=== PATIENT | male | born 1985 | race African-American/Black ===

== ENCOUNTER 2016-09-13 14:23 | Emergency (ER) | payer SELFPAY ==
[~2016-09-13] VITALS: Ht 172.7 cm; Wt 115.2 kg
[2016-09-13] MEDS ORDERED: Albuterol ud Inhalation HHN ONE (15:30)
--- NOTE | 2016-09-13 15:37 | Emergency Room Report ---
History of Present Illness General Chief Complaint: Upper Respiratory Illness Source: Patient (Isis Arriaga) Present Illness HPI 31-year-old male presents emergency department complaining of cough x3 weeks with new onset fevers and nasal congestion. Patient states that initially cough presented as a dry cough however over the course of the past 2 days he has noted intermittent sputum production. Patient states that he had a fever of 102 last night which responded well to Motrin. He states he is up-to-date with vaccinations denies history of asthma reports that he is a current smoker. Denies ill contacts, recent travel, abdominal pain, sore throat, n/v, or rashes. Patient denies history of immune compromise. Denies CP, Palpitations, LOC, AMS, dizziness, Changes in Vision, Sensation, paresthesias, or a sudden severe headache. (Isis Arriaga) Allergies: Coded Allergies: No Known Allergies (Unverified , 09/13/16) Patient History Past Medical History: see triage record Past Surgical History: none Pertinent Family History: none Immunizations: UTD Reviewed Nursing Documentation: PMH: Agreed, PSxH: Agreed (Isis Arriaga) Nursing Documentation-PMH Past Medical History: No Stated History (Isis Arriaga) Review of Systems All Other Systems: negative except mentioned in HPI (Isis Arriaga) Physical Exam Vital Signs Date Time Temp Pulse Resp B/P Pulse Ox O2 Delivery O2 Flow Rate FiO2 09/13/16 14:52 99.3 83 14 133/75 94 Room Air Sp02 EP Interpretation: reviewed, normal General Appearance: no apparent distress, alert, GCS 15, non-toxic Head: normocephalic, atraumatic Eyes: bilateral eye PERRL, bilateral eye normal inspection ENT: hearing grossly normal, normal pharynx, no angioedema, normal voice, TMs + canals normal, uvula midline, nasal congestion Neck: full range of motion, no meningismus, no bony tend, supple/symm/no masses Respiratory: chest non-tender, lungs clear, normal breath sounds, speaking full sentences, wheezing - mild expiratory wheezes bilaterally. Cardiovascular #1: regular rate, rhythm, no edema Rectal: deferred Musculoskeletal: back normal, gait/station normal, normal range of motion, non- tender, no calf tenderness Neurologic: alert, oriented x3, responsive, motor strength/tone normal, sensory intact, speech normal Psychiatric: judgement/insight normal, memory normal, mood/affect normal, no suicidal/homicidal ideation Skin: normal color, no rash, warm/dry, well hydrated Lymphatic: no adenopathy (Isis Arriaga) Medical Decision Making PA Attestation Dr. Abdullahi is my supervising Physician whom patient management has been discussed with. (Isis Arriaga) Diagnostic Impression: Primary Impression: Upper respiratory infection Qualified Codes: J06.9 - Acute upper respiratory infection, unspecified Additional Impression: Bronchitis ER Course 31-year-old male presents emergency department complaining of cough x3 weeks with new onset fevers and nasal congestion. Patient states that initially cough presented as a dry cough however over the course of the past 2 days he has noted intermittent sputum production. Patient states that he had a fever of 102 last night which responded well to Motrin Ddx considered but are not limited to URI, pneumonia, PE, strep pharyngitis, meningitis. Vital signs: Pt. is afebrile, the remaining VS are WNL, non-tachypneic, non tachycardic oxygenating at 94% RA H&PE are most consistent with URI- no meningeal signs, oropharynx is not involved, no evidence of bacterial infection at this time. ORDERS: none required at this time, the diagnosis is clinical ED INTERVENTIONS: - Albuterol Nebulized treatment. - Pt. became tachycardic after albuterol treatment, however improved significantly after rest. Pt. oxygen saturation improved to 98 % RA DISCHARGE: At this time pt. is stable for d/c to home. Will provide printed patient care instructions, and any necessary prescriptions. Care plan and follow up instructions have been discussed with the patient prior to discharge. (Isis [email or web address].Becki) Last Vital Signs Date Time Temp Pulse Resp B/P Pulse Ox O2 Delivery O2 Flow Rate FiO2 09/13/16 14:52 99.3 83 14 133/75 94 Room Air ([email or web address]) Last Vital Signs Date Time Temp Pulse Resp B/P Pulse Ox O2 Delivery O2 Flow Rate FiO2 09/13/16 16:01 99.3 102 20 137/79 98 Room Air (Markos Abdullahi M.D.) Disposition: HOME, SELF-CARE Condition: Stable Scripts Albuterol Sulfate* (ALBUTEROL SULFATE MDI*) 8.5 Gm Hfa.aer.ad 2 PUFF INH Q3H, #1 INH 0 Refills Prov: Isis Arriaga 09/13/16 Pseudoephedrine Hcl* (NEXAFED*) 30 Mg Tablet 30 MG ORAL Q6H Y for congestion for 5 Days, #20 TAB Prov: Isis Arriaga 09/13/16 Codeine/Promethazine Hcl* (PROMETHAZINE-CODEINE SYRUP*) 118 Ml Syrup 5 ML ORAL Q6H Y for For Cough, #118 ML 0 Refills Prov: Isis Arriaga 09/13/16 Departure Forms: Return to Work Return to Work in (Days): 3 Return to Work Date: Sep 16, 2016 Work Restrictions: None Return to Full Activity: Sep 16, 2016 Patient Instructions: Acute Bronchitis, Upper Respiratory Infection, Adult, [id number] Additional Instructions: Take medications as directed. Follow up with PCP in 3-5 days Return sooner to ED if new symptoms occur, or current symptoms become worse. Do not drink alcohol, drive, or operate heavy machinery while taking Cough Syrup as this may cause drowsiness. - Please note that this Emergency Department Report was dictated using [employer] technology software, occasionally this can lead to erroneous entry secondary to interpretation by the dictation equipment. Isis Arriaga Sep 13, 2016 15:37 Markos Abdulalhi M.D. Sep 16, 2016 04:24
[2016-09-13] MEDS ORDERED: PROMETHAZINE-C118 M1 ORAL (15:41)
[2016-09-13] MEDS ORDERED: NEXAFED30 MG ORAL (15:41)
[2016-09-13] MEDS ORDERED: ZITHROMAX250 MG ORAL (15:41)
[2016-09-13] MEDS ORDERED: ALBUTEROL SULF8.5 GM INH (15:42)
[2016-09-13 16:01] VITALS: BP 137/79
== END 2016-09-13 16:03 | disposition home or self-care (01) ==
LOC: EMR 15:45
DX: J06.9 Acute upper respiratory infection, unspecified (principal); J40 Bronchitis, not specified as acute or chronic
CPT/HCPCS: 94640; 94664; 99284

== ENCOUNTER 2017-03-31 10:47 | Emergency (ER) | payer OTHER ==
[~2017-03-31] VITALS: Ht 172.7 cm; Wt 111.1 kg
[~2017-03-31 10:47] MED LIST: ALBUTEROL SULF8.5 GM INH; NEXAFED30 MG ORAL; PROMETHAZINE-C118 M1 ORAL; ZITHROMAX250 MG ORAL
[2017-03-31] MEDS ORDERED: NKM (10:56)
[2017-03-31 11:07] VITALS: BP 123/87
[2017-03-31] MEDS ORDERED: ALBUTEROL SULF8.5 GM INH (11:25)
[2017-03-31] MEDS ORDERED: TYLENOL COLD M1 EAC3 PO (11:25)
[2017-03-31 11:37] VITALS: BP 123/87
--- NOTE | 2017-03-31 11:43 | Emergency Room Report ---
History of Present Illness General Chief Complaint: Upper Respiratory Illness Source: Patient Present Illness HPI 31-year-old male presents ED for evaluation. States for the last 3 days he's been feeling congestion with cough. Cough is productive with yellowish sputum. Worsen night. Denies fevers or chills. Denies earache or sore throat. Denies sick contacts or recent travel. No other aggravating relieving factors. Denies any other associated symptoms Allergies: Coded Allergies: No Known Allergies (Unverified , 09/13/16) Patient History Past Medical History: none Past Surgical History: none Pertinent Family History: none Social History: Denies: smoking, alcohol use, drug use Immunizations: UTD Reviewed Nursing Documentation: PMH: Agreed, PSxH: Agreed Nursing Documentation-PMH Past Medical History: No Stated History Review of Systems All Other Systems: negative except mentioned in HPI Physical Exam Vital Signs Date Time Temp Pulse Resp B/P (MAP) Pulse Ox O2 Delivery O2 Flow Rate FiO2 03/31/17 10:51 97.9 84 16 123/87 95 Room Air Sp02 EP Interpretation: reviewed, normal General Appearance: no apparent distress, alert, GCS 15, non-toxic, obese Head: normocephalic, atraumatic Eyes: bilateral eye normal inspection, bilateral eye PERRL ENT: hearing grossly normal, normal pharynx, no angioedema, normal voice Neck: full range of motion, supple/symm/no masses Respiratory: chest non-tender, lungs clear, normal breath sounds, speaking full sentences Cardiovascular #1: regular rate, rhythm, no edema Cardiovascular #2: 2+ carotid (R), 2+ carotid (L), 2+ radial (R), 2+ radial (L) , 2+ dorsalis pedis (R), 2+ dorsalis pedis (L) Gastrointestinal: normal bowel sounds, non tender, soft, non-distended, no guarding, no rebound Rectal: deferred Genitourinary: normal inspection, no CVA tenderness Musculoskeletal: back normal, gait/station normal, normal range of motion, non- tender Neurologic: alert, oriented x3, responsive, motor strength/tone normal, sensory intact, speech normal Psychiatric: judgement/insight normal, memory normal, mood/affect normal, no suicidal/homicidal ideation Reflexes: 3+ bicep (R), 3+ bicep (L), 3+ tricep (R), 3+ tricep (L), 3+ knee (R) , 3+ knee (L) Skin: normal color, no rash, warm/dry, well hydrated Lymphatic: no adenopathy Medical Decision Making Diagnostic Impression: Primary Impression: Bronchitis ER Course Hospital Course 31 year-old male presents to ED complaining of cough, runny nose with congestion Differential diagnoses include: URI, pharyngitis, otitis media, asthma Clinical course Patient placed on stretcher. After initial history, physical exam reveals a young male in no acute distress. Bilateral TM unremarkable. No pharyngeal erythema. No tonsillar exudates. No lymphadenopathy. lungs clear. abdomen soft. Clinical findings consistent with bronchitis. Reassurance given. treatment is supportive therapy Diagnosis - bronchitis Stable and discharged home with Rx Albuterol, tylenol multi-symptom. Instructed to followup with PMD. Return to ED if symptoms recur or worsen Last Vital Signs Date Time Temp Pulse Resp B/P (MAP) Pulse Ox O2 Delivery O2 Flow Rate FiO2 03/31/17 11:07 84 16 Room Air 03/31/17 11:07 97.9 123/87 95 Status: improved Disposition: HOME, SELF-CARE Condition: Stable Scripts Albuterol Sulfate* (ALBUTEROL SULFATE MDI*) 8.5 Gm Hfa.aer.ad 2 PUFF INH Q6H, #1 EA 0 Refills Prov: NAKUL STEPHEN M.D. 03/31/17 D-Methorphan/Pe/Acetaminophen (TYLENOL COLD MULTI-SYMP CAPLET) 1 Each Tablet 1 EACH PO Q6HR for 7 Days, TAB Prov: NAUKL STEPHEN M.D. 03/31/17 Patient Instructions: Acute Bronchitis, [id number] NAKUL STEPHEN M.D. Mar 31, 2017 11:43
== END 2017-03-31 11:37 | disposition home or self-care (01) ==
LOC: EMR 11:10
DX: J40 Bronchitis, not specified as acute or chronic (principal)
CPT/HCPCS: 99283

== ENCOUNTER 2017-10-23 19:20 | Emergency (ER) | payer OTHER ==
[~2017-10-23] VITALS: Ht 175.3 cm; Wt 115.7 kg
[~2017-10-23 19:20] MED LIST changes: +NKM; +TYLENOL COLD M1 EAC3 PO
[2017-10-23 20:00] VITALS: BP 130/88
--- NOTE | 2017-10-23 20:03 | Emergency Room Report ---
History of Present Illness General Chief Complaint: Lower Back Pain or Injury Source: Patient Present Illness HPI 32 yo male patient presents to ER complaining of back s/p injury at work yesterday. Reports was lifting boxes at work when he felt his back give out. Reports pain when twisting back. Reports took Ibuprofen for relief of pain symptoms. Denies radiation of pain. Denies fever, chest pain, SOB. Denies bowel or bladder incontinence. Denies hx of surgery. Denies hx of cancer or IVDA. Denies abdominal pain. Allergies: Coded Allergies: No Known Allergies (Unverified , 09/13/16) Patient History Past Medical History: see triage record Reviewed Nursing Documentation: PMH: Agreed; PSxH: Agreed Nursing Documentation-PMH Past Medical History: No History, Except For Hx Cardiac Problems: No - BRONCHITIS Review of Systems All Other Systems: negative except mentioned in HPI Physical Exam Vital Signs Date Time Temp Pulse Resp B/P (MAP) Pulse Ox O2 Delivery O2 Flow Rate FiO2 10/23/17 19:52 98.1 76 14 127/87 95 Room Air 98.1 Sp02 EP Interpretation: reviewed, normal General Appearance: well appearing, no apparent distress, alert, GCS 15, non- toxic Head: normocephalic, atraumatic Eyes: bilateral eye normal inspection, bilateral eye PERRL ENT: hearing grossly normal, normal pharynx, no angioedema, normal voice, uvula midline, moist mucus membranes Neck: full range of motion, no bony tend Respiratory: lungs clear, normal breath sounds, no rhonchi, no respiratory distress, no accessory muscle use, no wheezing, speaking full sentences Cardiovascular #1: regular rate, rhythm, no edema Genitourinary: no CVA tenderness Musculoskeletal: back normal, digits/nails normal, gait/station normal, normal range of motion, non-tender - spine, no calf tenderness, pelvis stable, other - no stepoff, tender - lateral lumbar spine soft tissue Neurologic: alert, oriented x3, responsive, motor strength/tone normal, sensory intact Psychiatric: mood/affect normal Skin: no rash Lymphatic: no adenopathy Medical Decision Making PA Attestation Dr. Stanley is my supervising Physician whom patient management has been discussed with. Diagnostic Impression: Primary Impression: Low back pain ER Course Pt presents to ED c/o back pain. DDX considered but are not limited to sprain, strain, cauda equina, epidural abscess, spinal cord compression. Low suspicion for cauda equina, no bowel or bladder incontinence or retention. No fever, nontoxic appearing, no radiation of pain, low suspicion for epidural mass or spinal cord compression. No imaging required at this time, low suspicion for fracture, likely muscular pain. VITAL SIGNS are WNL, patient is afebrile Ordered pain medication. ER COURSE: PE benign, no bony tenderness, no stepoff, able to ambulate independently, likely muscular sprain/strain, will provide muscle relaxant. Patient resting comfortably in chair, in no acute distress, nontoxic appearing. Injury occurred at work, provided work note, completed work lakia comp paperwork. Patient reports feeling better following medication, feels OK for discharge. DISCHARGE: -Rx provided for Tylenol -Rx provided for Lidocaine patch -Rx provided for Robaxin. SE drowsiness, do not drink, drive or operate heavy machinery while on medication. At this time pt. is stable for d/c to home. At this time patient is resting comfortably, in no acute distress, nontoxic appearing, smiling and talking without difficulty. Will provide printed patient care instructions, and any necessary prescriptions. Patient instructed to follow with primary care provider for further treatment and referral as needed. Care plan and follow up instructions have been discussed with the patient prior to discharge. Patient reports understanding and agreement to treatment plan. Patient questions asked and answered. ER precautions given, patient instructed to return to ER immediately for any new or worsening of symptoms. Last Vital Signs Date Time Temp Pulse Resp B/P (MAP) Pulse Ox O2 Delivery O2 Flow Rate FiO2 10/23/17 19:52 98.1 76 14 127/87 95 Room Air 98.1 Disposition: HOME, SELF-CARE Condition: Stable Scripts Methocarbamol* (ROBAXIN*) 500 Mg Tablet 500 MG PO TID, #21 TAB 0 Refills Prov: Homar [email or web address] 10/23/17 Lidocaine (Lidocaine) 1 Each Adh..patch 700 MG TP DAILY for 7 Days, #7 PATCH Prov: Homar [email or web address] 10/23/17 Ibuprofen* (MOTRIN*) 600 Mg Tablet 600 MG ORAL Q6H PRN for For Pain, #30 TAB Prov: Homar [email or web address] 10/23/17 Patient Instructions: Lumbosacral Strain, Low Back Sprain With Rehab-SportsMed , Back Pain, Adult Additional Instructions: Patient instructed to follow up with primary care provider and discuss further referral to orthopedics. Patient instructed on rest, ice and heat. Take medications as directed. Patient questions asked and answered. ER precautions given, patient instructed to return to ER immediately for any new or worsening of symptoms. Homar Banda Oct 23, 2017 20:03
[2017-10-23] MEDS ORDERED: ROBAXIN500 MG PO (20:14)
[2017-10-23] MEDS ORDERED: LIDOCAINE700 M1 TP (20:14)
[2017-10-23] MEDS ORDERED: IBUPROFEN600 MG ORAL (20:14)
[2017-10-23] MEDS ORDERED: Acetaminophen 500mg (ES) tab ORAL ONE (20:15)
[2017-10-23] MEDS ORDERED: Methocarbamol 500mg tab ORAL ONE (20:15)
[2017-10-23 20:30] VITALS: BP 130/88
== END 2017-10-23 20:30 | disposition home or self-care (01) ==
LOC: EMR 20:29
DX: M54.5 Low back pain (principal); X50.0XXA Overexertion from strenuous movement or load, initial encounter; Y92.89 Other specified places as the place of occurrence of the external cause; Y99.0 Civilian activity done for income or pay
CPT/HCPCS: 99284